=== PATIENT | male | born 2000 | race Caucasian/White ===

== ENCOUNTER 2023-08-10 09:30 | Emergency (ER) | payer OTHER ==
[~2023-08-10] VITALS: Ht 177.8 cm; Wt 65.3 kg
[2023-08-10 09:35] VITALS: BP 109/70; PULSE 58; RESP 16; TEMP 98; O2SAT 99
== END 2023-08-10 10:38 | disposition home or self-care (01) ==
LOC: ER 09:31
DX: S61.215A Laceration without foreign body of left ring finger without damage to nail, initial encounter (principal); X58.XXXA Exposure to other specified factors, initial encounter; Y93.89 Activity, other specified; Y92.89 Other specified places as the place of occurrence of the external cause; Y99.8 Other external cause status
CPT/HCPCS: 12001; 99282